=== PATIENT | female | born 1980 | race African-American/Black ===

== ENCOUNTER 2017-04-13 00:20 | Inpatient (IN) | payer OTHER ==
[2017-04-13] MEDS ORDERED: AMPICILLIN - 2 GM in SODIUM CHLORIDE 100 ML IVPB ONE (01:00)
[2017-04-13] MEDS ORDERED: CITRIC ACID/SODIUM CITRATE 30 ML UNIT-DOSE CUP PO ONE (01:00)
[2017-04-13] MEDS ORDERED: ELECTROLYTE-148 SOLN 500 ML IV ONE ×2 (01:00→01:30)
[2017-04-13] MEDS ORDERED: AMPICILLIN SODIUM 2 GM VIAL ONE (01:11)
[2017-04-13 01:23] LABS: BASO % 0.4 % (0-2.0); EOS % 0.6 % (0-4.5); HEMATOCRIT 36.6 % (32.4-45.2); HEMOGLOBIN 12.1 GM/dL (10.7-15.3); LYMPH % 23.7 % (8-40); MCH 26.6 pg (25.7-33.7); MCHC 33.1 g/dl (32.0-36.0); MEAN CELL VOLUME 80.3 fl (80-96); MEAN PLT VOLUME 9.3 fl (7.5-11.1); NEUT % 69.3 % (42.8-82.8); PLATELET COUNT 207 K/MM3 (134-434); RBC 4.55 M/mm3 (3.60-5.2); RDW 14.2 % (11.6-15.6); WHITE BLOOD COUNT 7.3 K/mm3 (4.0-10.0)
[2017-04-13 01:24] VITALS: BMI 29.4
[2017-04-13 01:40] LABS: INR 0.96 (0.82-1.09); PROTHROMBIN TIME (PATIENT) 10.8 SEC (9.98-11.88)
[2017-04-13 01:43] LABS: ACTIVATED PTT 24.9 SECONDS (26.9-34.4)
[2017-04-13 01:49] LABS: ANION GAP 10 (8-16); BLOOD UREA NITROGEN 6 mg/dL (7-18); CALCIUM 8.4 mg/dL (8.5-10.1); CHLORIDE 104 mmol/L (98-107); CO2 24 mmol/L (21-32); CREATININE 0.5 mg/dL (0.55-1.02); GLUCOSE,RANDOM 188 mg/dL (74-106); POTASSIUM 3.6 mmol/L (3.5-5.1); SODIUM 138 mmol/L (136-145)
[2017-04-13] MEDS ORDERED: morphine SULFATE/Preservative Free 0.5 MG/ML (1cc Syringe) ONE (02:47)
--- NOTE | 2017-04-13 02:57 | HP ---
Past Medical History - Primary Care Physician PCP:: Gustavo Lezama - Admission Chief Complaint: 36 weeks, CHTN, ROM, previous c/s, fibroid uterus, sterlization History of Present Illness: 36 yo f with 2 previous c/s with hx of chronic HTN, c/o ROM since 2 am today, clear fluid, has cramps, cx 2 cm 100, vx 0 ,mr, clear fluid,, FHR cat 1, irregular contraction, wants BTL, risks discussed History Source: Patient Limitations to Obtaining History: No Limitations - Past Medical History ...: 4 ...Para: 2 ...Term: 2 ...: 0 ...Spon : 1 ...Induced : 0 ...Multiple Gestation: 0 ...LMP: 08/09/16 ... Weeks Gestation by Dates: 35.2 ...EDC by Dates: 05/16/17 ...EDC by Sono: 05/08/17 - Past Surgical History Past Surgical History: Yes: Hx Myomectomy: No Hx Transabdominal Cerclage: No - Smoking History Smoking history: Never smoked Have you smoked in the past 12 months: No - Alcohol/Substance Use Hx Alcohol Use: No - Social History History of Recent Travel: No Home Medications - Allergies Allergies/Adverse Reactions: Allergies Allergy/AdvReac Type Severity Reaction Status Date / Time No Known Allergies Allergy Verified 04/13/17 00:50 - Home Medications Home Medications: Ambulatory Orders Ferrous Sulfate [Feosol] 325 mg PO DAILY 04/05/17 Pnv No.95/Ferrous Fum/Folic AC [ Vitamin Tablet] 1 each PO DAILY Review of Systems - Review of Systems Constitutional: reports: No Symptoms Eyes: reports: No Symptoms HENT: reports: No Symptoms Neck: reports: No Symptoms Cardiovascular: reports: No Symptoms Respiratory: reports: No Symptoms Gastrointestinal: reports: No Symptoms Genitourinary: reports: No Symptoms Breasts: reports: No Symptoms Reported Musculoskeletal: reports: No Symptoms Integumentary: reports: No Symptoms Neurological: reports: No Symptoms Endocrine: reports: No Symptoms Hematology/Lymphatic: reports: No Symptoms Psychiatric: reports: No Symptoms Physical Exam - Maternity Vital Signs: Vital Signs Temperature 98.5 F 04/13/17 00:20 Pulse Rate 89 04/13/17 02:30 Respiratory Rate 20 04/13/17 02:30 Blood Pressure 164/96 04/13/17 02:30 O2 Sat by Pulse Oximetry (%) Constitutional: Yes: Well Nourished, No Distress, Calm Eyes: Yes: WNL, Conjunctiva Clear, EOM Intact HENT: Yes: WNL, Atraumatic, Normocephalic Neck: Yes: WNL, Supple, Trachea Midline Cardiovascular: Yes: WNL, Regular Rate and Rhythm Breast(s): Yes: WNL - Abdominal Exam/OB Fundal Height: 36 Number of Fetuses: Single Presentation: Vertex Contractions: Yes Regularity: Irregular Intensity: Moderate Monitor Mode: External Heart Rate Location: [facility] Category: I Accelerations: Uniform Decelerations: None - Vaginal Exam/OB Vaginal Bleediing: No Speculum Exam: No Dilatation (cm): 2 cm Effacement (%): 100 Amniotic Membrane Status: Ruptured Amniotic Fluid: Yes: Clear Presentation: Vertex/Position Station: 0 - Physical Exam Musculoskeletal: Yes: WNL Extremities: Yes: WNL Edema: Yes Edema: LLE: Trace, RLE: Trace Deep Tendon Reflex Grade: Normal +2 - Labs Lab Results: CBC, BMP 04/13/17 01:12 04/13/17 01:12 Hemorrhage Risk Assessment - Risk Factors Medium Risk Factors: Yes: Prior , uterine surgery,or multiple laparotomies Risk Score: 1 Risk Level: Medium Risk Problem List - Problems (1) with 36 completed weeks gestation Code(s): Z3A.36 - 36 WEEKS GESTATION OF (2) Previous section complicating Code(s): O34.219 - MATERNAL CARE FOR UNSP TYPE SCAR FROM PREVIOUS DEL (3) Fibroid Code(s): D25.9 - LEIOMYOMA OF UTERUS, UNSPECIFIED Qualifiers: Uterine leiomyoma location: submucous Qualified Code(s): D25.0 - Submucous leiomyoma of uterus (4) membrane rupture Code(s): VNM0455 - (5) Labor established Code(s): [id number] - (6) Chronic hypertension affecting Code(s): O10.919 - UNSP PRE-EXISTING HTN COMP , UNSP TRIMESTER Assessment/Plan admit for repeat c/s , btl, rba discussed
[2017-04-13] MEDS ORDERED: ceFAZolin SODIUM 1 GM VIAL ONE (03:03)
[2017-04-13] MEDS ORDERED: ONDANSETRON 4 MG/2 ML VIAL IVPUSH PRN (03:05)
[2017-04-13] MEDS ORDERED: IBUPROFEN 600 MG TABLET (FP) PO PRN (03:05)
[2017-04-13] MEDS ORDERED: WITCH HAZEL 50% (TUCKS) 40 PAD/JAR PAD TP PRN (03:53)
[2017-04-13] MEDS ORDERED: OXYTOCIN 10 UNITS/ML VIAL ONE ×2 (03:53)
[2017-04-13] MEDS ORDERED: BENZOCAINE 28 GM HEMORRHOIDAL OINTMENT PR PRN (03:53)
[2017-04-13] MEDS ORDERED: BENZOCAINE 20% 57 GM BOTTLE TP PRN (03:53)
[2017-04-13] MEDS ORDERED: METHYLERGONOVINE MALEATE 0.2 MG/1 ML AMP IM PRN (03:53)
[2017-04-13] MEDS ORDERED: oxyCODONE HCL 5 MG TABLET PO PRN (03:53)
[2017-04-13] MEDS ORDERED: diphenhydrAMINE HCL 25 MG CAPSULE (FP) PO PRN (03:53)
[2017-04-13] MEDS ORDERED: ACETAMINOPHEN 1000 MG/100 ML VIAL (NON FORMULARY) IVPB PRN (03:57)
[2017-04-13] MEDS ORDERED: DEXTROSE 5%-LACTATED RINGERS 1,000 ML IV SCH (04:00)
[2017-04-13] MEDS ORDERED: OXYTOCIN 20 UNITS in 0.9% NS 20 UNIT/1,000 ML INFUS.BAG IV SCH (04:00)
[2017-04-13] MEDS ORDERED: OXYTOCIN 20 UNITS in 0.9% NS 20 UNIT/1,000 ML INFUS.BAG IV ONE (04:15)
[2017-04-13] MEDS: LABETALOL HCL 200 MG TABLET (FP) PO PRN ×3 (04:51→21:14)
[2017-04-13] MEDS ORDERED: LABETALOL HCL 200 MG TABLET (FP) ONE (04:53)
[2017-04-13] MEDS ORDERED: LABETALOL HCL 200 MG TABLET (FP) PO ONE (08:30)
[2017-04-13] MEDS: PRENATAL VITAMINS W/ FOLIC ACID TABLET (FP) PO SCH (09:43)
[2017-04-13] MEDS: AMPICILLIN - 1 GM in SODIUM CHLORIDE 100 ML IVPB SCH ×3 (09:51→22:18)
[2017-04-13] MEDS: CEFAZOLIN 1 GM PUSH 1 GM/10 ML DISP.SYRIN IVPUSH SCH ×2 (10:00→17:20)
--- NOTE | 2017-04-13 11:06 | CON.NEP ---
Consult Consult Specialty:: Nephrology Referred by:: Dr. Leach Reason for Consultation:: Hypertension - History of Present Illness Chief Complaint: History of Present Illness: This is a 36 year old woman with no significant PMhx who presented at 36 weeks gestation with ROM now s/p repeat with hypertension. Pt reports that she had elevated BP during her clinic visits during her last month of . She also reports having elevated BP during her last as well. Pt denies any SOB, chest pain, TRUONG, blurry vision. Pt received Labetalol x 2 overnight. Pt gained 20 lbs during her . - History Source History Provided By: Patient Limitations to Obtaining History: No Limitations - Past Surgical History Past Surgical History: Yes: - Alcohol/Substance Use Hx Alcohol Use: No - Smoking History Smoking history: Never smoked Have you smoked in the past 12 months: No - Social History History of Recent Travel: No Home Medications - Allergies Allergies/Adverse Reactions: Allergies Allergy/AdvReac Type Severity Reaction Status Date / Time No Known Allergies Allergy Verified 04/13/17 00:50 - Home Medications Home Medications: Ambulatory Orders Ferrous Sulfate [Feosol] 325 mg PO DAILY 04/05/17 Pnv No.95/Ferrous Fum/Folic AC [ Vitamin Tablet] 1 each PO DAILY Family Disease History - Family Disease History Family History: Unremarkable Review of Systems - Review of Systems Constitutional: reports: No Symptoms Eyes: reports: No Symptoms HENT: reports: No Symptoms Neck: reports: No Symptoms Cardiovascular: reports: No Symptoms Respiratory: reports: No Symptoms Gastrointestinal: reports: No Symptoms Musculoskeletal: reports: No Symptoms Integumentary: reports: No Symptoms Neurological: reports: No Symptoms Nephrology Consult - Height Height: 5 ft 3 in - Weight Weight: 75.296 kg - BMI Body Mass Index (BMI): 29.4 - Lab Results CBC,BMP: CBC, BMP 04/13/17 01:12 04/13/17 01:12 Anion Gap: Anion Gap Anion Gap 10 (8-16) 04/13/17 01:12 - Physical Examination Vital Signs: Vital Signs Temperature 98 F 04/13/17 06:00 Pulse Rate 68 04/13/17 06:00 Respiratory Rate 18 04/13/17 06:00 Blood Pressure 170/96 04/13/17 06:00 O2 Sat by Pulse Oximetry (%) 100 04/13/17 05:15 Constitutional: Yes: No Distress, Calm Eyes: Yes: Conjunctiva Clear HENT: Yes: Atraumatic Neck: Yes: Supple Cardiovascular: Yes: Regular Rate and Rhythm. No: Murmur Respiratory: Yes: Regular, CTA Bilaterally Gastrointestinal: Yes: Normal Bowel Sounds Edema: No Assessment/Plan 36 year old woman with no significant PMhx who presented at 36 weeks gestation with ROM now s/p repeat with hypertension. # Hypertension secondary to preclampsia vs. PIH No thrombocytopenia noted on CBC no LFTs checked, will order for the AM check UA, UPCR to access for proteinuria continue Labetalol 200mg Q6h for BP > 140/90 Low salt diet avoid nsaids trend BP will access [facility] for outpatient meds based on BP trend as inpatient. Thank you Will follow Merlin Morillo DO
--- NOTE | 2017-04-13 15:14 | EKG ---
Test Reason : Blood Pressure : / mmHG Vent. Rate : 085 BPM Atrial Rate : 085 BPM P-R Int : 182 ms QRS Dur : 080 ms QT Int : 376 ms P-R-T Axes : 058 043 042 degrees QTc Int : 447 ms NORMAL SINUS RHYTHM POSSIBLE LEFT ATRIAL ENLARGEMENT BORDERLINE ECG NO PREVIOUS ECGS AVAILABLE Confirmed by MD BELEN, JACKIE ([id number]) on 04/13/2017 3:13:54 PM Referred By: Confirmed By:JACKIE GLOVER MD
[2017-04-13] MEDS: SIMETHICONE 80 MG TAB.CHEW (FP) PO PRN ×2 (17:18→21:14)
[2017-04-13] MEDS: oxyCODONE HCL 5 MG TABLET PO PRN ×2 (17:18→21:14)
[2017-04-13] MEDS: ACETAMINOPHEN 325 MG TABLET (FP) PO PRN ×2 (17:19→21:15)
[2017-04-14] MEDS: AMPICILLIN - 1 GM in SODIUM CHLORIDE 100 ML IVPB SCH (03:39)
[2017-04-14] MEDS: ACETAMINOPHEN 325 MG TABLET (FP) PO PRN ×4 (03:57→20:00)
[2017-04-14] MEDS: SIMETHICONE 80 MG TAB.CHEW (FP) PO PRN ×5 (03:57→20:00)
[2017-04-14] MEDS: LABETALOL HCL 200 MG TABLET (FP) PO PRN ×3 (03:58→21:42)
[2017-04-14] MEDS: oxyCODONE HCL 5 MG TABLET PO PRN ×4 (03:58→20:01)
--- NOTE | 2017-04-14 08:35 | PN ---
Progress Note (short form) - Note Progress Note: Post op day#1.S/P C Section under spinal anesthesia with duramorph uneventful.Patient stable and has little pain for which she is on medication.No any anesthesia related problem.Patient DC from the anesthesia care.
[2017-04-14 08:40] LABS: BASO % 0.2 % (0-2.0); EOS % 1.4 % (0-4.5); HEMATOCRIT 33.1 % (32.4-45.2); HEMOGLOBIN 10.8 GM/dL (10.7-15.3); LYMPH % 16.2 % (8-40); MCH 26.4 pg (25.7-33.7); MCHC 32.7 g/dl (32.0-36.0); MEAN CELL VOLUME 80.8 fl (80-96); MEAN PLT VOLUME 8.9 fl (7.5-11.1); MONO % 9.2 % (3.8-10.2); PLATELET COUNT 187 K/MM3 (134-434); RDW 14.2 % (11.6-15.6); WHITE BLOOD COUNT 9.1 K/mm3 (4.0-10.0)
[2017-04-14 09:12] LABS: CHLORIDE 109 mmol/L (98-107); POTASSIUM 3.6 mmol/L (3.5-5.1); SODIUM 139 mmol/L (136-145)
[2017-04-14 09:21] LABS: ALBUMIN 2.1 g/dl (3.4-5.0); ALK PHOS 112 U/L (45-117); ANION GAP 7 (8-16); BILIRUBIN,TOTAL 0.5 mg/dL (0.2-1.0); BLOOD UREA NITROGEN 4 mg/dL (7-18); CALCIUM 7.6 mg/dL (8.5-10.1); CO2 23 mmol/L (21-32); CREATININE 0.5 mg/dL (0.55-1.02); GLUCOSE,RANDOM 74 mg/dL (74-106); SGOT/AST 26 U/L (15-37); SGPT/ALT 10 U/L (12-78); TOT PROT 5.3 g/dl (6.4-8.2)
[2017-04-14] MEDS: PRENATAL VITAMINS W/ FOLIC ACID TABLET (FP) PO SCH (09:36)
[2017-04-14] MEDS: ENOXAPARIN NA (PORCINE) 40 MG/0.4 ML DISP.SYRIN SQ SCH (09:36)
--- NOTE | 2017-04-14 12:54 | PN ---
Post Progress Note - Subjective Subjective: 36 yo Para 3 status post , seen and evaluated. She's ambulating but c/o feeling weak and incision pain. Post Day: 1 Type of Delivery: Repeat C/S Vital Signs: Vital Signs Temperature 98.4 F 04/14/17 06:00 Pulse Rate 76 04/14/17 06:00 Respiratory Rate 18 04/14/17 06:00 Blood Pressure 139/81 04/14/17 06:00 O2 Sat by Pulse Oximetry (%) 100 04/13/17 05:15 Breast Exam: Yes: Soft Uterus: Yes: Fundus Firm Incision: Yes: Dressing dry and intact Abdomen/GI: Yes: Abdomen soft, Tolerating PO Lochia: Yes: Rubra Lochia, amount: Small Extremities: Yes: Calves non-tender Perineum: Yes: Intact Activity: Ambulating - Labs Labs: CBC WBC 9.1 K/mm3 (4.0-10.0) 04/14/17 08:00 RBC 4.10 M/mm3 (3.60-5.2) 04/14/17 08:00 Hgb 10.8 GM/dL (10.7-15.3) D 04/14/17 08:00 Hct 33.1 % (32.4-45.2) 04/14/17 08:00 MCV 80.8 fl (80-96) 04/14/17 08:00 MCH 26.4 pg (25.7-33.7) 04/14/17 08:00 MCHC 32.7 g/dl (32.0-36.0) 04/14/17 08:00 RDW 14.2 % (11.6-15.6) 04/14/17 08:00 Plt Count 187 K/MM3 (134-434) 04/14/17 08:00 MPV 8.9 fl (7.5-11.1) 04/14/17 08:00 Neutrophils % 73.0 % (42.8-82.8) 04/14/17 08:00 Lymphocytes % 16.2 % (8-40) D 04/14/17 08:00 Monocytes % 9.2 % (3.8-10.2) 04/14/17 08:00 Eosinophils % 1.4 % (0-4.5) D 04/14/17 08:00 Basophils % 0.2 % (0-2.0) 04/14/17 08:00 Problem List - Problems (1) Status post repeat low transverse section Code(s): Z98.891 - HISTORY OF UTERINE SCAR FROM PREVIOUS SURGERY Assessment/Plan Status post repeat Analgesia PRN pain Continue ambulation Continue post op care
[2017-04-14] MEDS: BISACODYL 10 MG SUPP.RECT PR PRN (17:14)
--- NOTE | 2017-04-14 19:36 | PN ---
Progress Note (short form) - Note Progress Note: htn BP controlled Current Medications Acetaminophen (Tylenol -) 650 mg PO Q4H PRN PRN Reason: PAIN LEVEL 6-10 Last Admin: 04/14/17 12:32 Dose: 650 mg Acetaminophen (Ofirmev Injection -) 1,000 mg IVPB Q6H PRN PRN Reason: PAIN LEVEL 6-10 Benzocaine (Americaine 20% [place] -) 1 spray TP PRN PRN PRN Reason: PAIN Benzocaine (Americaine Ointment -) 1 applic [place] PRN PRN PRN Reason: PAIN Bisacodyl (Dulcolax Suppository -) 10 mg [place] PRN PRN PRN Reason: CONSTIPATION Last Admin: 04/14/17 17:14 Dose: 10 mg Diphenhydramine HCl (Benadryl Injection -) 25 mg IVPUSH Q4H PRN PRN Reason: Pruritis Last Admin: 04/13/17 06:08 Dose: 25 mg Diphenhydramine HCl (Benadryl -) 25 mg PO Q8H PRN PRN Reason: FOR ITCHING Enoxaparin Sodium (Lovenox -) 40 mg SQ DAILY [facility] Last Admin: 04/14/17 09:36 Dose: 40 mg Dextrose/Lactated Ringer's (D5-Lr -) 1,000 mls @ 125 mls/hr IV ASDIR [facility] Last Admin: 04/13/17 18:40 Dose: Not Given Labetalol HCl (Normodyne -) 200 mg PO Q6H PRN PRN Reason: HYPERTENSION Last Admin: 04/14/17 11:02 Dose: 200 mg Methylergonovine Maleate (Methergine Injection -) 0.2 mg IM Q4H PRN PRN Reason: EXCESSIVE BLEEDING Ondansetron HCl (Zofran Injection) 4 mg IVPUSH Q4H PRN PRN Reason: NAUSEA Oxycodone HCl (Roxicodone -) 5 mg PO Q4H PRN PRN Reason: PAIN LEVEL 1-5 Last Admin: 04/14/17 12:31 Dose: 5 mg Oxycodone HCl (Roxicodone -) 10 mg PO Q4H PRN PRN Reason: PAIN LEVEL 6-10 Multivit/Folic Acid/Iron ( Vitamins (Sjr) -) 1 tab PO DAILY [facility] Last Admin: 04/14/17 09:36 Dose: 1 tab Senna/Docusate Sodium (Pericolace -) 2 tablet PO HS PRN PRN Reason: CONSTIPATION Simethicone (Mylicon -) 80 mg PO Q4H PRN PRN Reason: GAS Last Admin: 04/14/17 17:14 Dose: 80 mg [place]/Glycerin (Tucks Pads -) 1 pad TP PRN PRN PRN Reason: PAIN alert in nad Last Vital Signs Temp Pulse Resp BP Pulse Ox 98 F 78 20 134/84 100 04/14/17 18:00 04/14/17 18:00 04/14/17 18:00 04/14/17 18:00 04/13/17 05:15 lungs clear Heart reg Abd soft nontender Ext no edema CBC, BMP 04/14/17 08:00 04/14/17 08:00 -bp well controlled on current regimen
[2017-04-15] MEDS: oxyCODONE HCL 5 MG TABLET PO PRN ×5 (02:17→22:07)
[2017-04-15] MEDS: ACETAMINOPHEN 325 MG TABLET (FP) PO PRN ×5 (02:18→22:07)
[2017-04-15] MEDS: SIMETHICONE 80 MG TAB.CHEW (FP) PO PRN ×5 (02:19→22:07)
[2017-04-15] MEDS: LABETALOL HCL 200 MG TABLET (FP) PO PRN ×3 (04:28→18:10)
--- NOTE | 2017-04-15 05:44 | PN ---
Post Progress Note - Subjective Subjective: 36 yo Para 3 with hypertension status post repeat , seen and evaluated. Doing well. She's on Labetalol. Post Day: 2 Type of Delivery: Repeat C/S Vital Signs: Vital Signs Temperature 98.0 F 04/15/17 04:00 Pulse Rate 73 04/15/17 04:00 Respiratory Rate 20 04/15/17 04:00 Blood Pressure 148/90 04/15/17 04:00 O2 Sat by Pulse Oximetry (%) 100 04/13/17 05:15 Breast Exam: Yes: Soft Uterus: Yes: Fundus Firm Incision: Yes: Dressing dry and intact Abdomen/GI: Yes: Abdomen soft, Tolerating PO Lochia: Yes: Rubra Lochia, amount: Small Extremities: Yes: Calves non-tender Perineum: Yes: Intact Activity: Ambulating - Labs Labs: CBC WBC 9.1 K/mm3 (4.0-10.0) 04/14/17 08:00 RBC 4.10 M/mm3 (3.60-5.2) 04/14/17 08:00 Hgb 10.8 GM/dL (10.7-15.3) D 04/14/17 08:00 Hct 33.1 % (32.4-45.2) 04/14/17 08:00 MCV 80.8 fl (80-96) 04/14/17 08:00 MCH 26.4 pg (25.7-33.7) 04/14/17 08:00 MCHC 32.7 g/dl (32.0-36.0) 04/14/17 08:00 RDW 14.2 % (11.6-15.6) 04/14/17 08:00 Plt Count 187 K/MM3 (134-434) 04/14/17 08:00 MPV 8.9 fl (7.5-11.1) 04/14/17 08:00 Neutrophils % 73.0 % (42.8-82.8) 04/14/17 08:00 Lymphocytes % 16.2 % (8-40) D 04/14/17 08:00 Monocytes % 9.2 % (3.8-10.2) 04/14/17 08:00 Eosinophils % 1.4 % (0-4.5) D 04/14/17 08:00 Basophils % 0.2 % (0-2.0) 04/14/17 08:00 Problem List - Problems (1) Status post repeat low transverse section Code(s): Z98.891 - HISTORY OF UTERINE SCAR FROM PREVIOUS SURGERY Assessment/Plan Status post repeat Analgesia PRN pain Continue ambulation Continue Labetalol Continue post op care
[2017-04-15] MEDS: ENOXAPARIN NA (PORCINE) 40 MG/0.4 ML DISP.SYRIN SQ SCH (10:56)
[2017-04-15] MEDS: PRENATAL VITAMINS W/ FOLIC ACID TABLET (FP) PO SCH (10:57)
[2017-04-15] MEDS ORDERED: SENNOSIDES/DOCUSATE COMBO (SENNA PLUS) TABLET (UD) PO PRN (22:00)
--- NOTE | 2017-04-15 22:03 | PN ---
Progress Note (short form) - Note Progress Note: htn BP controlled on labetolol prn still needs pain management Current Medications Acetaminophen (Tylenol -) 650 mg PO Q4H PRN PRN Reason: PAIN LEVEL 6-10 Last Admin: 04/15/17 18:10 Dose: 650 mg Acetaminophen (Ofirmev Injection -) 1,000 mg IVPB Q6H PRN PRN Reason: PAIN LEVEL 6-10 Benzocaine (Americaine 20% [place] -) 1 spray TP PRN PRN PRN Reason: PAIN Benzocaine (Americaine Ointment -) 1 applic [place] PRN PRN PRN Reason: PAIN Bisacodyl (Dulcolax Suppository -) 10 mg [place] PRN PRN PRN Reason: CONSTIPATION Last Admin: 04/14/17 17:14 Dose: 10 mg Diphenhydramine HCl (Benadryl Injection -) 25 mg IVPUSH Q4H PRN PRN Reason: Pruritis Last Admin: 04/13/17 06:08 Dose: 25 mg Diphenhydramine HCl (Benadryl -) 25 mg PO Q8H PRN PRN Reason: FOR ITCHING Enoxaparin Sodium (Lovenox -) 40 mg SQ DAILY [facility] Last Admin: 04/15/17 10:56 Dose: 40 mg Dextrose/Lactated Ringer's (D5-Lr -) 1,000 mls @ 125 mls/hr IV ASDIR [facility] Last Admin: 04/13/17 18:40 Dose: Not Given Labetalol HCl (Normodyne -) 200 mg PO Q6H PRN PRN Reason: HYPERTENSION Last Admin: 04/15/17 18:10 Dose: 200 mg Methylergonovine Maleate (Methergine Injection -) 0.2 mg IM Q4H PRN PRN Reason: EXCESSIVE BLEEDING Ondansetron HCl (Zofran Injection) 4 mg IVPUSH Q4H PRN PRN Reason: NAUSEA Oxycodone HCl (Roxicodone -) 5 mg PO Q4H PRN PRN Reason: PAIN LEVEL 1-5 Last Admin: 04/15/17 18:10 Dose: 5 mg Oxycodone HCl (Roxicodone -) 10 mg PO Q4H PRN PRN Reason: PAIN LEVEL 6-10 Multivit/Folic Acid/Iron ( Vitamins (Sjr) -) 1 tab PO DAILY [facility] Last Admin: 04/15/17 10:57 Dose: 1 tab Senna/Docusate Sodium (Pericolace -) 2 tablet PO HS PRN PRN Reason: CONSTIPATION Simethicone (Mylicon -) 80 mg PO Q4H PRN PRN Reason: GAS Last Admin: 04/15/17 19:02 Dose: 80 mg [place]/Glycerin (Tucks Pads -) 1 pad TP PRN PRN PRN Reason: PAIN alert in nad Last Vital Signs Temp Pulse Resp BP Pulse Ox 98.4 F 80 20 159/90 100 04/15/17 18:00 04/15/17 18:00 04/15/17 18:00 04/15/17 18:00 04/13/17 05:15 lungs clear Heart reg Abd soft nontender Ext no edema CBC, BMP 04/14/17 08:00 04/14/17 08:00 -bp well controlled on current regimen can maybe switch to standing dose of labetalol
[2017-04-16] MEDS: LABETALOL HCL 100 MG TABLET (FP) PO PRN ×5 (00:08→23:19)
[2017-04-16] MEDS ORDERED: ACETAMINOPHEN 325 MG TABLET (FP) PO ONE (00:15)
[2017-04-16] MEDS: SIMETHICONE 80 MG TAB.CHEW (FP) PO PRN ×4 (02:13→23:13)
[2017-04-16] MEDS: ACETAMINOPHEN 325 MG TABLET (FP) PO PRN ×3 (06:22→23:13)
[2017-04-16] MEDS ORDERED: oxyCODONE HCL 5 MG TABLET PO PRN (06:52)
[2017-04-16 08:21] LABS: BASO % 0.3 % (0-2.0); HEMATOCRIT 32.7 % (32.4-45.2); HEMOGLOBIN 10.9 GM/dL (10.7-15.3); LYMPH % 27.8 % (8-40); MCH 26.9 pg (25.7-33.7); MCHC 33.3 g/dl (32.0-36.0); MEAN CELL VOLUME 80.9 fl (80-96); MEAN PLT VOLUME 8.7 fl (7.5-11.1); MONO % 6.5 % (3.8-10.2); NEUT % 61.4 % (42.8-82.8); PLATELET COUNT 238 K/MM3 (134-434); RBC 4.04 M/mm3 (3.60-5.2); RDW 14.5 % (11.6-15.6); WHITE BLOOD COUNT 7.8 K/mm3 (4.0-10.0)
[2017-04-16] MEDS: ENOXAPARIN NA (PORCINE) 40 MG/0.4 ML DISP.SYRIN SQ SCH (09:15)
[2017-04-16] MEDS: oxyCODONE HCL 5 MG TABLET PO PRN ×3 (09:15→23:14)
[2017-04-16] MEDS: PRENATAL VITAMINS W/ FOLIC ACID TABLET (FP) PO SCH (09:16)
--- NOTE | 2017-04-16 09:45 | PN ---
Post Progress Note - Subjective Subjective: Patient seen and evaluated; She c/o incision pain. Post Day: 3 Type of Delivery: Repeat C/S Vital Signs: Vital Signs Temperature 98.1 F 04/15/17 23:30 Pulse Rate 74 04/16/17 06:19 Respiratory Rate 20 04/16/17 06:19 Blood Pressure 152/84 04/16/17 06:19 O2 Sat by Pulse Oximetry (%) 100 04/13/17 05:15 Breast Exam: Yes: Soft Uterus: Yes: Fundus Firm Incision: Yes: [place] intact Abdomen/GI: Yes: Abdomen soft, Tolerating PO Lochia: Yes: Rubra Lochia, amount: Small Extremities: Yes: Calves non-tender Perineum: Yes: Intact Activity: Ambulating - Labs Labs: CBC WBC 7.8 K/mm3 (4.0-10.0) 04/16/17 07:28 RBC 4.04 M/mm3 (3.60-5.2) 04/16/17 07:28 Hgb 10.9 GM/dL (10.7-15.3) 04/16/17 07:28 Hct 32.7 % (32.4-45.2) 04/16/17 07:28 MCV 80.9 fl (80-96) 04/16/17 07:28 MCH 26.9 pg (25.7-33.7) 04/16/17 07:28 MCHC 33.3 g/dl (32.0-36.0) 04/16/17 07:28 RDW 14.5 % (11.6-15.6) 04/16/17 07:28 Plt Count 238 K/MM3 (134-434) D 04/16/17 07:28 MPV 8.7 fl (7.5-11.1) 04/16/17 07:28 Neutrophils % 61.4 % (42.8-82.8) 04/16/17 07:28 Lymphocytes % 27.8 % (8-40) D 04/16/17 07:28 Monocytes % 6.5 % (3.8-10.2) 04/16/17 07:28 Eosinophils % 4.0 % (0-4.5) D 04/16/17 07:28 Basophils % 0.3 % (0-2.0) 04/16/17 07:28 Problem List - Problems (1) Status post repeat low transverse section Code(s): Z98.891 - HISTORY OF UTERINE SCAR FROM PREVIOUS SURGERY Assessment/Plan Status post repeat Analgesia PRN pain Continue ambulation Continue Labetalol Continue post op care
[2017-04-16] MEDS: BISACODYL 10 MG SUPP.RECT PR PRN (15:56)
--- NOTE | 2017-04-16 18:27 | PN ---
Progress Note (short form) - Note Progress Note: Renal follow up for hypertension pt seen and examined at the bedside awake and alert no acute complaints BP remains high periodically Vital Signs Temperature 98.0 F 04/16/17 12:30 Pulse Rate 72 04/16/17 12:30 Respiratory Rate 20 04/16/17 12:30 Blood Pressure 133/95 04/16/17 12:30 O2 Sat by Pulse Oximetry (%) 100 04/13/17 05:15 Intake & Output 04/13/17 04/14/17 04/15/17 04/16/17 23:59 23:59 23:59 23:59 Intake Total 5330 720 480 Output Total 2500 1900 2300 4200 Balance 2830 -1180 -1820 -4200 Weight 75.296 kg NAD awake and alert No Le edema CBC, BMP 04/16/17 07:28 04/14/17 08:00 Current Medications Acetaminophen (Tylenol -) 650 mg PO Q4H PRN PRN Reason: PAIN LEVEL 6-10 Last Admin: 04/16/17 18:12 Dose: 650 mg Acetaminophen (Ofirmev Injection -) 1,000 mg IVPB Q6H PRN PRN Reason: PAIN LEVEL 6-10 Benzocaine (Americaine 20% [place] -) 1 spray TP PRN PRN PRN Reason: PAIN Benzocaine (Americaine Ointment -) 1 applic [place] PRN PRN PRN Reason: PAIN Bisacodyl (Dulcolax Suppository -) 10 mg [place] PRN PRN PRN Reason: CONSTIPATION Last Admin: 04/16/17 15:56 Dose: 10 mg Diphenhydramine HCl (Benadryl Injection -) 25 mg IVPUSH Q4H PRN PRN Reason: Pruritis Last Admin: 04/13/17 06:08 Dose: 25 mg Diphenhydramine HCl (Benadryl -) 25 mg PO Q8H PRN PRN Reason: FOR ITCHING Enoxaparin Sodium (Lovenox -) 40 mg SQ DAILY [facility] Last Admin: 04/16/17 09:15 Dose: 40 mg Dextrose/Lactated Ringer's (D5-Lr -) 1,000 mls @ 125 mls/hr IV ASDIR [facility] Last Admin: 04/13/17 18:40 Dose: Not Given Labetalol HCl (Normodyne -) 300 mg PO Q6H PRN PRN Reason: HYPERTENSION Last Admin: 04/16/17 18:06 Dose: 300 mg Methylergonovine Maleate (Methergine Injection -) 0.2 mg IM Q4H PRN PRN Reason: EXCESSIVE BLEEDING Ondansetron HCl (Zofran Injection) 4 mg IVPUSH Q4H PRN PRN Reason: NAUSEA Oxycodone HCl (Roxicodone -) 5 mg PO Q4H PRN PRN Reason: PAIN LESS THAN 5 Oxycodone HCl (Roxicodone -) 10 mg PO Q4H PRN PRN Reason: PAIN 5 OR GREATER Last Admin: 04/16/17 18:07 Dose: 10 mg Multivit/Folic Acid/Iron ( Vitamins (Sjr) -) 1 tab PO DAILY [facility] Last Admin: 04/16/17 09:16 Dose: 1 tab Senna/Docusate Sodium (Pericolace -) 2 tablet PO HS PRN PRN Reason: CONSTIPATION Last Admin: 04/15/17 22:06 Dose: 2 tablet Simethicone (Mylicon -) 80 mg PO Q4H PRN PRN Reason: GAS Last Admin: 04/16/17 18:13 Dose: 80 mg [place]/Glycerin (Tucks Pads -) 1 pad TP PRN PRN PRN Reason: PAIN 36 year old woman with no significant PMhx who presented at 36 weeks gestation with ROM now s/p repeat with hypertension. # Hypertension BP remains slightly above goal continue Labetalol 300mg Q6h PRN will need antihypertensives on discharge pain control low salt diet will determine outpatient labealol done in [facility] Ilia HOGUE
[2017-04-17] MEDS: oxyCODONE HCL 5 MG TABLET PO PRN ×3 (05:29→22:50)
[2017-04-17] MEDS: SIMETHICONE 80 MG TAB.CHEW (FP) PO PRN ×3 (05:29→22:49)
[2017-04-17] MEDS: ACETAMINOPHEN 325 MG TABLET (FP) PO PRN ×4 (05:30→22:49)
[2017-04-17] MEDS: LABETALOL HCL 100 MG TABLET (FP) PO PRN ×2 (05:49→12:57)
[2017-04-17] MEDS: ENOXAPARIN NA (PORCINE) 40 MG/0.4 ML DISP.SYRIN SQ SCH (09:07)
[2017-04-17] MEDS: PRENATAL VITAMINS W/ FOLIC ACID TABLET (FP) PO SCH (09:07)
--- NOTE | 2017-04-17 10:44 | DS ---
Physical Exam-LITERARY AGENT Vital Signs: Vital Signs Temperature 98.3 F 04/17/17 08:03 Pulse Rate 67 04/17/17 08:03 Respiratory Rate 20 04/17/17 08:03 Blood Pressure 160/85 04/17/17 08:03 O2 Sat by Pulse Oximetry (%) 100 04/13/17 05:15 Constitutional: Yes: Well Nourished Eyes: Yes: Conjunctiva Clear HENT: Yes: Atraumatic Neck: Yes: Supple Cardiovascular: Yes: Regular Rate and Rhythm Respiratory: Yes: Regular Gastrointestinal: Yes: Normal Bowel Sounds External Genitalia: Yes: Normal Cervix: Yes: Normal Uterus: Yes: Normal Musculoskeletal: Yes: WNL Wound/Incision: Yes: Well Approximated, [place] Intact Neurological: Yes: Alert, Oriented ...Motor Strength: WNL Psychiatric: Yes: Alert, Oriented Labs: CBC, BMP 04/16/17 07:28 04/14/17 08:00 Delivery - Delivery Type of Anesthesia: Spinal Episiotomy/Laceration: None EBL (cc): 500 Delivery, Single - Stages of Labor Date of Delivery: 04/13/17 Time of Delivery: 03:11 Time Placenta Delivered: 03:12 - Condition of Senior Management Consultant/Systems Requirements Planner Present: Yes Name: Mamie Kitchen Infant Gender: Female Weight: 5 lb 2 oz Position: Right, OT Total Hours ROM (Hrs/Mins): 3hrs 42min - 1 Minute Total Score: 9 5 Minutes Total Score: 9 - Feeding Plan Initial Plan: Elected not to breastfeed exclusively throughout hospitalization Discharge Summary Reason For Visit: C/SECTION Current Active Problems Chronic hypertension affecting (Acute) membrane rupture (Acute) Fibroid (Acute) Labor established (Acute) with 36 completed weeks gestation (Acute) Previous section complicating (Acute) Status post repeat low transverse section (Acute) Procedures: Principal: Repeat LOw Transverse Hospital Course: Patient developed hypertension after . She was seen by [facility] [employer] and Labetalol was prescribed. Condition: Good - Instructions Diet, Activity, Other Instructions: Regular diet No driving, no lifting x 4 weeks F/U in clinic in one week Disposition: HOME - Home Medications Comprehensive Discharge Medication List: Ambulatory Orders Ferrous Sulfate [Feosol] 325 mg PO DAILY 04/05/17 Pnv No.95/Ferrous Fum/Folic AC [ Vitamin Tablet] 1 each PO DAILY
--- NOTE | 2017-04-17 11:53 | PN ---
Progress Note (short form) - Note Progress Note: Renal follow up for hypertension pt seen and examined at the bedside no acute complaints wants to go home bp slighly elevated today Vital Signs Temperature 98.3 F 04/17/17 08:03 Pulse Rate 67 04/17/17 08:03 Respiratory Rate 20 04/17/17 08:03 Blood Pressure 160/85 04/17/17 08:03 O2 Sat by Pulse Oximetry (%) 100 04/13/17 05:15 Intake & Output 04/14/17 04/15/17 04/16/17 04/17/17 23:59 23:59 23:59 23:59 Intake Total 720 480 240 Output Total 1900 2300 4200 1000 Balance -1180 -1820 -3960 -1000 NAD awake and alert No Le edema CBC, BMP 04/16/17 07:28 04/14/17 08:00 Current Medications Acetaminophen (Tylenol -) 650 mg PO Q4H PRN PRN Reason: PAIN LEVEL 6-10 Last Admin: 04/17/17 10:52 Dose: 650 mg Acetaminophen (Ofirmev Injection -) 1,000 mg IVPB Q6H PRN PRN Reason: PAIN LEVEL 6-10 Benzocaine (Americaine 20% [place] -) 1 spray TP PRN PRN PRN Reason: PAIN Benzocaine (Americaine Ointment -) 1 applic [place] PRN PRN PRN Reason: PAIN Bisacodyl (Dulcolax Suppository -) 10 mg [place] PRN PRN PRN Reason: CONSTIPATION Last Admin: 04/16/17 15:56 Dose: 10 mg Diphenhydramine HCl (Benadryl Injection -) 25 mg IVPUSH Q4H PRN PRN Reason: Pruritis Last Admin: 04/13/17 06:08 Dose: 25 mg Diphenhydramine HCl (Benadryl -) 25 mg PO Q8H PRN PRN Reason: FOR ITCHING Enoxaparin Sodium (Lovenox -) 40 mg SQ DAILY VILLA Last Admin: 04/17/17 09:07 Dose: 40 mg Dextrose/Lactated Ringer's (D5-Lr -) 1,000 mls @ 125 mls/hr IV ASDIR VILLA Last Admin: 04/13/17 18:40 Dose: Not Given Labetalol HCl (Normodyne -) 300 mg PO Q6H PRN PRN Reason: HYPERTENSION Last Admin: 04/17/17 05:49 Dose: 300 mg Methylergonovine Maleate (Methergine Injection -) 0.2 mg IM Q4H PRN PRN Reason: EXCESSIVE BLEEDING Ondansetron HCl (Zofran Injection) 4 mg IVPUSH Q4H PRN PRN Reason: NAUSEA Oxycodone HCl (Roxicodone -) 5 mg PO Q4H PRN PRN Reason: PAIN LESS THAN 5 Oxycodone HCl (Roxicodone -) 10 mg PO Q4H PRN PRN Reason: PAIN 5 OR GREATER Last Admin: 04/17/17 10:51 Dose: 10 mg Multivit/Folic Acid/Iron ( Vitamins (Sjr) -) 1 tab PO DAILY VILLA Last Admin: 04/17/17 09:07 Dose: 1 tab Senna/Docusate Sodium (Pericolace -) 2 tablet PO HS PRN PRN Reason: CONSTIPATION Last Admin: 04/15/17 22:06 Dose: 2 tablet Simethicone (Mylicon -) 80 mg PO Q4H PRN PRN Reason: GAS Last Admin: 04/17/17 10:51 Dose: 80 mg [place]/Glycerin (Tucks Pads -) 1 pad TP PRN PRN PRN Reason: PAIN 36 year old woman with no significant PMhx who presented at 36 weeks gestation with ROM now s/p repeat with hypertension. # Hypertension Pt will need to be discharged on anithypertensive medications Will send Rx to [facility] on [address] for Labetalol 400mg Q12h pt will need to follow up in our office for titration of medication low salt diet avoid nsaids adequate pain control thank you for letting us take part in the care of this patient will follow as outpatient Merlin Morillo DO
[2017-04-17] MEDS ORDERED: LABETALOL HCL 100 MG TABLET (FP) PO ONE (13:15)
[2017-04-17] MEDS: NIFEdipine E.R. 30 MG TABLET (FP) PO SCH (16:44)
[2017-04-17 22:45] LABS: URINE APPEARANCE CLEAR; URINE BILIRUBIN NEGATIVE (NEGATIVE); URINE BLOOD 3+ (NEGATIVE); URINE COLOR STRAW; URINE GLUCOSE (UA) NEGATIVE (NEGATIVE); URINE KETONE NEGATIVE (NEGATIVE); URINE LEUK ESTERASE TRACE (NEGATIVE); URINE NITRITE NEGATIVE (NEGATIVE); URINE PROTEIN NEGATIVE (NEGATIVE); URINE UROBILINOGEN NEGATIVE mg/dL (0.2-1.0)
[2017-04-18] MEDS: SIMETHICONE 80 MG TAB.CHEW (FP) PO PRN (04:13)
[2017-04-18] MEDS: ACETAMINOPHEN 325 MG TABLET (FP) PO PRN ×2 (04:14→10:04)
[2017-04-18] MEDS: oxyCODONE HCL 5 MG TABLET PO PRN (04:14)
--- NOTE | 2017-04-18 08:06 | PN ---
Post Progress Note - Subjective Subjective: no c/o headache pain scale 4 or 3, only when she gets up voiding without difficulty Post Day: 5 Type of Delivery: Repeat C/S Vital Signs: Vital Signs Temperature 98.9 F 04/18/17 07:15 Pulse Rate 78 04/18/17 07:15 Respiratory Rate 18 04/18/17 07:15 Blood Pressure 141/86 04/18/17 07:15 O2 Sat by Pulse Oximetry (%) 100 04/13/17 05:15 Breast Exam: Yes: Soft, Other (BF ). No: Engorged Uterus: Yes: Fundus Firm, Fundus below umbilicus, Non-tender Incision: Yes: Nile intact. No: Redness, Oozing Abdomen/GI: Yes: Abdomen soft, Passing flatus (bm done ), Tolerating PO (diet ) . No: Abdominal Distention, Tender Lochia: Yes: Rubra Lochia, amount: Moderate Extremities: Yes: Calves non-tender Perineum: Yes: Intact Activity: Ambulating - Labs Labs: CBC WBC 7.8 K/mm3 (4.0-10.0) 04/16/17 07:28 RBC 4.04 M/mm3 (3.60-5.2) 04/16/17 07:28 Hgb 10.9 GM/dL (10.7-15.3) 04/16/17 07:28 Hct 32.7 % (32.4-45.2) 04/16/17 07:28 MCV 80.9 fl (80-96) 04/16/17 07:28 MCH 26.9 pg (25.7-33.7) 04/16/17 07:28 MCHC 33.3 g/dl (32.0-36.0) 04/16/17 07:28 RDW 14.5 % (11.6-15.6) 04/16/17 07:28 Plt Count 238 K/MM3 (134-434) D 04/16/17 07:28 MPV 8.7 fl (7.5-11.1) 04/16/17 07:28 Neutrophils % 61.4 % (42.8-82.8) 04/16/17 07:28 Lymphocytes % 27.8 % (8-40) D 04/16/17 07:28 Monocytes % 6.5 % (3.8-10.2) 04/16/17 07:28 Eosinophils % 4.0 % (0-4.5) D 04/16/17 07:28 Basophils % 0.3 % (0-2.0) 04/16/17 07:28 Assessment/Plan patient was retained yesterday due to high BP, today wnl. pt on procardia & Labetalol discharge pending clearance from Dr Morillo
[2017-04-18] MEDS: BISACODYL 10 MG SUPP.RECT PR PRN (08:32)
[2017-04-18] MEDS: ENOXAPARIN NA (PORCINE) 40 MG/0.4 ML DISP.SYRIN SQ SCH (10:02)
[2017-04-18] MEDS: PRENATAL VITAMINS W/ FOLIC ACID TABLET (FP) PO SCH (10:03)
[2017-04-18 10:31] VITALS: BP 133/79; PULSE 85; TEMP 98.7
[2017-04-18] MEDS: NIFEdipine E.R. 30 MG TABLET (FP) PO SCH (10:37)
--- NOTE | 2017-04-18 10:40 | PN ---
Progress Note (short form) - Note Progress Note: Renal follow up for hypertension pt seen and examined at the bedside no complaints BP better controlled overnight on procardia no dizziness,lightheadedness no sob, chest pain Vital Signs Temperature 98.7 F 04/18/17 10:00 Pulse Rate 85 04/18/17 10:00 Respiratory Rate 20 04/18/17 10:00 Blood Pressure 133/79 04/18/17 10:00 O2 Sat by Pulse Oximetry (%) 100 04/13/17 05:15 Intake & Output 04/15/17 04/16/17 04/17/17 04/18/17 23:59 23:59 23:59 23:59 Intake Total 480 240 Output Total 2300 4200 2700 800 Balance -1820 -3960 -2700 -800 NAD awake and alert No Le edema CBC, BMP 04/16/17 07:28 04/14/17 08:00 Current Medications Acetaminophen (Tylenol -) 650 mg PO Q4H PRN PRN Reason: PAIN LEVEL 6-10 Last Admin: 04/18/17 10:04 Dose: 650 mg Acetaminophen (Ofirmev Injection -) 1,000 mg IVPB Q6H PRN PRN Reason: PAIN LEVEL 6-10 Benzocaine (Americaine 20% [place] -) 1 spray TP PRN PRN PRN Reason: PAIN Benzocaine (Americaine Ointment -) 1 applic [place] PRN PRN PRN Reason: PAIN Bisacodyl (Dulcolax Suppository -) 10 mg [place] PRN PRN PRN Reason: CONSTIPATION Last Admin: 04/18/17 08:32 Dose: 10 mg Diphenhydramine HCl (Benadryl Injection -) 25 mg IVPUSH Q4H PRN PRN Reason: Pruritis Last Admin: 04/13/17 06:08 Dose: 25 mg Diphenhydramine HCl (Benadryl -) 25 mg PO Q8H PRN PRN Reason: FOR ITCHING Enoxaparin Sodium (Lovenox -) 40 mg SQ DAILY [facility] Last Admin: 04/18/17 10:02 Dose: 40 mg Dextrose/Lactated Ringer's (D5-Lr -) 1,000 mls @ 125 mls/hr IV ASDIR VILLA Last Admin: 04/13/17 18:40 Dose: Not Given Labetalol HCl (Normodyne -) 300 mg PO Q6H PRN PRN Reason: HYPERTENSION Last Admin: 04/17/17 12:57 Dose: 300 mg Methylergonovine Maleate (Methergine Injection -) 0.2 mg IM Q4H PRN PRN Reason: EXCESSIVE BLEEDING Nifedipine (Procardia Xl -) 30 mg PO DAILY VILLA Last Admin: 04/18/17 10:37 Dose: 30 mg Ondansetron HCl (Zofran Injection) 4 mg IVPUSH Q4H PRN PRN Reason: NAUSEA Oxycodone HCl (Roxicodone -) 5 mg PO Q4H PRN PRN Reason: PAIN LESS THAN 5 Last Admin: 04/18/17 10:03 Dose: 5 mg Oxycodone HCl (Roxicodone -) 10 mg PO Q4H PRN PRN Reason: PAIN 5 OR GREATER Last Admin: 04/18/17 04:14 Dose: 10 mg Multivit/Folic Acid/Iron ( Vitamins (Sjr) -) 1 tab PO DAILY VILLA Last Admin: 04/18/17 10:03 Dose: 1 tab Senna/Docusate Sodium (Pericolace -) 2 tablet PO HS PRN PRN Reason: CONSTIPATION Last Admin: 04/15/17 22:06 Dose: 2 tablet Simethicone (Mylicon -) 80 mg PO Q4H PRN PRN Reason: GAS Last Admin: 04/18/17 04:13 Dose: 80 mg [place]/Glycerin (Tucks Pads -) 1 pad TP PRN PRN PRN Reason: PAIN 36 year old woman with no significant PMhx who presented at 36 weeks gestation with ROM now s/p repeat with hypertension. # Hypertension secondary to preeclampsia BP controlled on Nifedpine ER 30mg, will continue at home Low salt diet discussed symptoms of Low BP and what should be done if she felt them to follow up in our office next week for BP monitoring Thank you for allowing us to take part in the care of this patient. Merlin Morillo DO
--- NOTE | 2017-04-18 14:30 | PATH ---
Surgical Pathology Report Patient Name: MARIANELA BAER Med. Rec. 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 Specimen(s) Received PLACENTA Clinical History , 36.3 weeks previous x2 SROM, elevated blood pressure, fibroid tubes and uterus Final Diagnosis PLACENTA, SECTION: 382 g THIRD TRIMESTER PLACENTA WITH TRIVASCULAR UMBILICAL CORD AND FOCAL MILD TO MODERATE CHORIOAMNIONITIS. Electronically Signed Tenisha Oropeza M.D. Gross Description The specimen is received fresh labeled placenta and is a 382 gram, 15.0 x 13.0 x 3.0 cm. placenta with attached membranes and umbilical cord. The attached membranes are brizuela, translucent with focal opacities and insert marginally. The umbilical cord measures 26 cm. in length and averages 1 cm. in diameter. The cord inserts at the margin. No true knots or strictures are identified. Cut surface of the umbilical cord reveals 3 vessels. The surface is peña-blue with minimal fibrin deposition and appropriate caliber vessels. The maternal surface is red-brown with focal defects. Sectioning reveals red-brown, spongy parenchyma. No lesions are identified. Shucker sections are submitted in three cassettes as follows: 1- membrane rolls and umbilical cord; 2-3- full thickness sections of placenta. /04/17/2017 [facility]04/17/2017
== END 2017-04-18 12:00 | disposition home or self-care (01) | DRG 540 ==
LOC: JLDR 00:20 → J3W 05:59
PROVIDERS: ADMIT Obstetrics & Gynecology; ATTEND Obstetrics & Gynecology
PROC: 10D00Z1 Extraction of Products of Conception, Low, Open Approach (ICD-10-PCS; principal; 2017-04-13)
DX: O34.211 Maternal care for low transverse scar from previous cesarean delivery (principal); O60.14X0 Preterm labor third trimester with preterm delivery third trimester, not applicable or unspecified; O10.013 Pre-existing essential hypertension complicating pregnancy, third trimester; O34.13 Maternal care for benign tumor of corpus uteri, third trimester; D25.9 Leiomyoma of uterus, unspecified; Z3A.36 36 weeks gestation of pregnancy; Z37.0 Single live birth
CPT/HCPCS: 36415; 80048; 80053; 81003; 81015; 82565; 82570; 84156; 85025; 85610; 85730; 86593; 86850; 86900; 86901; 93005; 93010

== ENCOUNTER 2020-10-26 19:15 | Emergency (ER) | payer OTHER ==
[2020-10-26 19:27] VITALS: TEMP 98; BMI 30.1
[2020-10-26 20:35] LABS: EPI CELLS 1 /uL (0-25.1); HCG,QUALITATIVE URINE Negative; HYALINE CASTS 0 /uL (0-3.1); URINE APPEARANCE CLOUDY; URINE BACTERIA 1 /uL (0-1359); URINE BILIRUBIN NEGATIVE (NEGATIVE); URINE COLOR RED; URINE GLUCOSE (UA) NEGATIVE (NEGATIVE); URINE KETONE NEGATIVE (NEGATIVE); URINE LEUK ESTERASE 1+ (NEGATIVE); URINE NITRITE NEGATIVE (NEGATIVE); URINE PROTEIN NEGATIVE (NEGATIVE); URINE RBC 20414 /uL (0-23.9); URINE UROBILINOGEN 0.2 mg/dL (0.2-1.0); URINE WBC 32 /uL (0-25.8)
[2020-10-26 21:03] LABS: BASO % 0.2 % (0-2.0); EOS % 2.2 % (0-4.5); HEMATOCRIT 32.1 % (32.4-45.2); HEMOGLOBIN 10.5 GM/dL (10.7-15.3); LYMPH % 32.3 % (8-40); MCH 24.3 pg (25.7-33.7); MCHC 32.9 g/dl (32.0-36.0); MEAN CELL VOLUME 73.8 fl (80-96); MEAN PLT VOLUME 9.1 fl (7.5-11.1); MONO % 9.7 % (3.8-10.2); NEUT % 55.6 % (42.8-82.8); PLATELET COUNT 265 10^3/uL (134-434); RBC 4.34 M/mm3 (3.60-5.2); RDW 14.6 % (11.6-15.6)
[2020-10-26 21:13] LABS: INR 1.03 (0.83-1.09); PROTHROMBIN TIME (PATIENT) 12.7 SEC (9.7-13.0)
[2020-10-26 21:34] LABS: BLOOD UREA NITROGEN 17.9 mg/dL (7-18); CALCIUM 8.7 mg/dL (8.5-10.1)
[2020-10-26 21:38] LABS: CREATININE 0.9 mg/dL (0.55-1.3)
[2020-10-26 21:39] LABS: BILIRUBIN,TOTAL 0.2 mg/dL (0.2-1); TOT PROT 8.1 g/dl (6.4-8.2)
[2020-10-26] MEDS ORDERED: METOPROLOL TARTRATE 25 MG TABLET (FP) PO ONE (22:05)
[2020-10-26] MEDS ORDERED: METOPROLOL TARTRATE 25 MG TABLET (FP) ONE (22:09)
[2020-10-26] MEDS ORDERED: LABETALOL HCL 100 MG TABLET (FP) PO ONE (23:36)
[2020-10-26] MEDS ORDERED: LABETALOL HCL 100 MG TABLET (FP) ONE (23:41)
[2020-10-27 00:51] VITALS: BP 165/98; PULSE 70
== END 2020-10-27 01:25 | disposition home or self-care (01) ==
LOC: JER 19:15
DX: N93.9 Abnormal uterine and vaginal bleeding, unspecified (principal); I10 Essential (primary) hypertension
CPT/HCPCS: 36415; 80053; 81003; 84703; 85025; 85610; 86850; 86900; 86901; 99283-25